=== PATIENT | female | born 1990 | race Caucasian/White ===

== ENCOUNTER 2022-08-26 19:37 | Inpatient (IN) | payer OTHER ==
[~2022-08-26] VITALS: Ht 152.4 cm; Wt 71.7 kg
[2022-08-26] MEDS ORDERED: PROMETHAZINE HCL 25 MG/ML 1ML AMPULE IM PRN (20:00)
[2022-08-26] MEDS ORDERED: MEPERIDINE-PF 50 MG/ML SYG IVP PRN (20:00)
[2022-08-26] MEDS ORDERED: DINOPROSTONE 10 MG VAGINAL SUPP VG SCH (20:00)
[2022-08-26 20:17] VITALS: BP 117/65
[2022-08-26 20:29] LABS: APPEARANCE,URINE CLEAR (CLEAR); BILIRUBIN,URINE NEGATIVE (NEGATIVE); COLOR,URINE COLORLESS (YELLOW); GLUCOSE, URINE (UA) NEGATIVE (NEGATIVE); KETONES,URINE NEGATIVE (NEGATIVE); LEUKOCYTE ESTERASE ,URINE 500 Leu/uL (NEGATIVE); NITRATE,URINE NEGATIVE (NEGATIVE); OCCULT BLOOD,URINE NEGATIVE (NEGATIVE); PH,URINE 6.5 (5.0-8.0); PROTEIN,URINE NEGATIVE (NEGATIVE); UROBILINOGEN,URINE 0.2 mg/dL (0.2-1.0)
[2022-08-26 20:32] LABS: BACTERIA,URINE RARE /HPF (None Seen); SQUAMOUS EPITHELIAL CELL,UR RARE /HPF (0-2); TRANSITIONAL EPI CELLS,URINE RARE /HPF (None Seen)
[2022-08-26] MEDS: LACTATED RINGERS 1000ML 1,000 ML IV PRN (20:45)
[2022-08-26 20:49] LABS: MEAN CORPUSCULAR HEMOGLOBIN 26.2 pg (27.0-33.0); MEAN CORPUSCULAR VOLUME 79.3 fL (79-99); RED BLOOD CELL COUNT(AUTO) 4.16 MIL/uL (4.00-5.50); RED CELL DISTRIBUTION WIDTH 14.5 % (11.0-15.5); WHITE BLOOD COUNT (AUTO) 8.5 K/uL (4.8-10.8)
[2022-08-27] MEDS: LACTATED RINGERS 1000ML 1,000 ML IV PRN ×2 (04:21→12:11)
[2022-08-27 05:49] LABS: AMPHET/METH SCREEN,URINE NEGATIVE (NEGATIVE); BARBITURATE SCREEN, URINE NEGATIVE (NEGATIVE); BENZODIAZEPINES SCREEN,URINE NEGATIVE (NEGATIVE); CANNABINOID SCREEN,URINE NEGATIVE (NEGATIVE); COCAINE SCREEN,URINE NEGATIVE (NEGATIVE); OPIATE SCREEN,URINE NEGATIVE (NEGATIVE); PHENCYCLIDINE SCREEN,URINE NEGATIVE (NEGATIVE)
[2022-08-27] MEDS ORDERED: OXYTOCIN-LR 20 UNITS/1000 ML 1,000 ML IV SCH (07:00)
[2022-08-27 09:46] LABS: RAPID PLASMA REAGIN NONREACTIVE (NONREACTIVE)
[2022-08-27] MEDS ORDERED: MORPHINE PF 100MG/10ML AMP IV ONE (14:56)
[2022-08-27] MEDS ORDERED: FENTANYL CITRATE PF 50 MCG/1 ML 2ML VIAL ONE ×2 (14:56→16:00)
[2022-08-27] MEDS ORDERED: CEFAZOLIN SODIUM 2 GM VIAL IVP PRN (15:00)
[2022-08-27] MEDS ORDERED: CEFAZOLIN SODIUM 2 GM VIAL IVPB ONE (15:25)
[2022-08-27] MEDS ORDERED: OXYTOCIN 10 USP UNITS/ML ONE ×2 (15:43→15:50)
[2022-08-27] MEDS ORDERED: ONDANSETRON 4MG INJ ONE (15:49)
[2022-08-27] MEDS ORDERED: MIDAZOLAM HCL 1 MG/ML 2ML VIAL ONE (15:58)
[2022-08-27] MEDS ORDERED: DEXTROSE 5 %-0.45 % NACL 1,000 ML IV PRN (17:30)
[2022-08-27] MEDS ORDERED: PROMETHAZINE HCL 25 MG/ML 1ML AMPULE IM PRN (17:30)
[2022-08-27] MEDS ORDERED: 0.9%NACL 10ML VIAL IVP PRN (17:30)
[2022-08-27] MEDS ORDERED: OXYTOCIN-LR 20 UNITS/1000 ML 1,000 ML IV PRN (17:30)
[2022-08-27] MEDS ORDERED: CEFAZOLIN SODIUM 1 GM VIAL IVP SCH (17:30)
[2022-08-27] MEDS ORDERED: MEPERIDINE-PF 75 MG/ML SYG IM PRN (17:30)
[2022-08-27 17:58] VITALS: BP 118/71
[2022-08-27 19:23] VITALS: BP 123/72
[2022-08-27] MEDS ORDERED: DiphenhydrAMINE HCL 50 MG/ML VIAL IVP PRN (20:30)
[2022-08-27] MEDS ORDERED: MEPERIDINE-PF 25 MG/ML SYG IV PRN (20:30)
[2022-08-27] MEDS ORDERED: EPHEDRINE SULFATE 50 MG/ML AMPULE IVP PRN (20:30)
[2022-08-27] MEDS ORDERED: LORATADINE 10 MG TABLET PO PRN (20:30)
[2022-08-27] MEDS ORDERED: NALOXONE HCL 0.4 MG/1 ML ML IVP PRN ×3 (20:30)
[2022-08-27] MEDS ORDERED: CALDOLOR 800MG+NS 250ML 250 ML IV PRN (20:30)
[2022-08-27] MEDS ORDERED: ONDANSETRON 4MG INJ IVP PRN (20:30)
[2022-08-27 22:00] VITALS: BP 126/74
[2022-08-27] MEDS: CEFAZOLIN SODIUM 2 GM VIAL IVPB SCH (23:42)
[2022-08-28 03:07] VITALS: BP 111/66
[2022-08-28] MEDS ORDERED: ACETAMINOPHEN WITH CODEINE 1 TAB TAB PO PRN (06:00)
[2022-08-28] MEDS ORDERED: HYDROCODONE/ACETAMINOPHEN 5/325 MG TAB PO PRN (06:00)
[2022-08-28] MEDS ORDERED: ACETAMINOPHEN 500 MG TABLET PO PRN (06:00)
[2022-08-28] MEDS ORDERED: LANOLIN 30GM OINTMENT TP PRN (06:00)
[2022-08-28] MEDS ORDERED: FLU VACC QS2022-23(6MOS UP)/PF 60 MCG/0.5 ML ML IM ONE (06:00)
[2022-08-28] MEDS ORDERED: DIPH,PERTUSS(ACELL),TET VAC/PF 0.5 ML VIAL IM ONE (06:00)
[2022-08-28] MEDS ORDERED: BISACODYL 10 MG SUPP.RECT RC PRN (06:00)
[2022-08-28 06:34] LABS: HEMATOCRIT 29.1 % (36-48); MEAN CORPUSCULAR HEMOGLOBIN 26.2 pg (27.0-33.0); MEAN CORPUSCULAR HGB CONC 32.6 g/dL (32.0-36.0); MEAN CORPUSCULAR VOLUME 80.2 fL (79-99); RED BLOOD CELL COUNT(AUTO) 3.63 MIL/uL (4.00-5.50); RED CELL DISTRIBUTION WIDTH 14.6 % (11.0-15.5); WHITE BLOOD COUNT (AUTO) 11.2 K/uL (4.8-10.8)
[2022-08-28 07:25] VITALS: BP 118/64
[2022-08-28] MEDS ORDERED: DOCUSATE SODIUM 100 MG CAP PO SCH (09:00)
[2022-08-28] MEDS: CEFAZOLIN SODIUM 2 GM VIAL IVPB SCH (09:04)
[2022-08-28] MEDS: SIMETHICONE 80 MG TAB.CHEW PO PRN ×2 (09:04→16:49)
[2022-08-28] MEDS: IBUPROFEN 600 MG TABLET PO PRN ×2 (09:08→16:49)
[2022-08-28 12:39] VITALS: BP 110/63
[2022-08-28] MEDS ORDERED: ACET-2079 PO (16:16)
[2022-08-28 16:42] VITALS: BP 115/68
== END 2022-08-28 17:15 | disposition home or self-care (01) | DRG 788 ==
LOC: LDH 19:37 → WSH 08-27 18:00
PROVIDERS: ADMIT Obstetrics & Gynecology; ATTEND Obstetrics & Gynecology
PROC: 10D00Z1 Extraction of Products of Conception, Low, Open Approach (ICD-10-PCS; principal; 2022-08-27 15:00)
DX: O62.2 Other uterine inertia (principal); Z37.0 Single live birth; Z3A.39 39 weeks gestation of pregnancy
CPT/HCPCS: 36415; 59510; 80305; 81001; 85027; 86592; 86701; 86850; 86900; 86901; 87088; 87340; 87390; 90715; A4344; G0378; J1741; J2175; J2250; J2274; J2405; J2550; J2590; J3010; J7120; Q2035